=== PATIENT | female | born 1985 | race Native Hawaiian/Other Pacific Islander ===

== ENCOUNTER 2020-05-08 18:10 | Emergency (ER) | payer OTHER ==
[~2020-05-08] VITALS: Ht 154.9 cm; Wt 74.8 kg
[~2020-05-08 18:10] MED LIST: ACET-689 PO; KETOROLAC15 MG/ML IJ; MEDROL DOSEPAK4 MG OR; METHYLPR SS125 MG IJ; NAPROSYN500 MG OR
[2020-05-08 20:13] VITALS: BP 125/81; TEMP 98.3
== END 2020-05-08 20:14 | disposition home or self-care (01) ==
LOC: ED 18:10
DX: J20.9 Acute bronchitis, unspecified (principal); Z20.828 Contact with and (suspected) exposure to other viral communicable diseases; F17.210 Nicotine dependence, cigarettes, uncomplicated
CPT/HCPCS: 36415; 87635; 99283; U0003

== ENCOUNTER 2021-04-17 11:15 | Outpatient (CLI) | payer BC | END 2021-04-17 19:13 | disposition home or self-care (01) | LOC: MAMMO 11:15 | PROVIDERS: ATTEND Specialist | DX: Z12.31 Encounter for screening mammogram for malignant neoplasm of breast (principal) ==

== ENCOUNTER 2022-04-22 03:46 | Emergency (ER) | payer BC ==
[~2022-04-22] VITALS: Ht 157.5 cm; Wt 68.0 kg
[2022-04-22 04:46] VITALS: BP 107/68; TEMP 98.1
== END 2022-04-22 04:46 | disposition home or self-care (01) ==
LOC: ED 03:46
DX: J20.9 Acute bronchitis, unspecified (principal); R05.8 Other specified cough; M94.0 Chondrocostal junction syndrome [Tietze]; F17.210 Nicotine dependence, cigarettes, uncomplicated
CPT/HCPCS: 96372; 99282; J2930

== ENCOUNTER 2022-06-12 18:41 | Outpatient (CLI) | payer BC | END 2022-06-12 19:21 | disposition home or self-care (01) | LOC: RAD 18:41 | PROVIDERS: ATTEND Nurse Practitioner Family | DX: M25.561 Pain in right knee (principal) ==